=== PATIENT | female | born 2000 | race Two or more races ===

== ENCOUNTER 2025-01-03 00:44 | Emergency (ER) | payer SELFPAY ==
[~2025-01-03] VITALS: Ht 172.7 cm; Wt 61.4 kg
[2025-01-03 00:52] VITALS: TEMP 97.6
[2025-01-03] MEDS: ONDANSETRON HCL 4 MG/2 ML VIAL IVP ONE (01:39)
[2025-01-03 01:51] LABS: PLATELET COUNT (AUTO) 230 K/uL (150-450); RED BLOOD CELL COUNT(AUTO) 4.24 MIL/uL (4.00-5.20); RED CELL DISTRIBUTION WIDTH 13.1 % (11.5-14.5); WHITE BLOOD COUNT (AUTO) 6.3 K/uL (4.5-11.0)
[2025-01-03 01:57] LABS: CALCIUM, TOTAL 8.9 mg/dL (8.8-10.5); CREATININE 0.89 mg/dL (0.60-1.30); GLOMERULAR FILTR. RATE CALC > 60 mL/min (>60); GLUCOSE,RANDOM 120 mg/dL (70-110); SODIUM SERUM 140 mmol/L (136-145); UREA NITROGEN, BLOOD 11 mg/dL (7-18)
[2025-01-03 02:03] LABS: ALCOHOL, BLOOD (SERUM) 127.0 mg/dL (0-10)
[2025-01-03 02:08] LABS: ASPARTATE AMINOTRANSFERASE 42.0 U/L (15-37); TOTAL PROTEIN, SERUM 7.8 g/dL (6.4-8.2)
[2025-01-03] MEDS: PANTOPRAZOLE SODIUM 40 MG/VIAL IVP ONE (04:22)
[2025-01-03 04:31] VITALS: BP 103/76; PULSE 71; RESP 19; O2SAT 99
== END 2025-01-03 04:55 | disposition home or self-care (01) ==
LOC: EMS 00:50
DX: K29.70 Gastritis, unspecified, without bleeding (principal); R10.13 Epigastric pain; R11.10 Vomiting, unspecified; R10.11 Right upper quadrant pain; F10.129 Alcohol abuse with intoxication, unspecified; Y90.6 Blood alcohol level of 120-199 mg/100 ml
CPT/HCPCS: 99285; 74176; 96374; 76700; 96375; 80048; 80076; 83690; 84703; 85025; 36415; G0480; J1171; J2405; J2470

== ENCOUNTER 2025-01-06 06:48 | Emergency (ER) | payer MEDICAID ==
[~2025-01-06] VITALS: Ht 172.7 cm; Wt 65.9 kg
[2025-01-06 07:16] VITALS: TEMP 97.5
[2025-01-06 08:45] LABS: PLATELET COUNT (AUTO) 232 K/uL (150-450); RED BLOOD CELL COUNT(AUTO) 4.35 MIL/uL (4.00-5.20); RED CELL DISTRIBUTION WIDTH 13.2 % (11.5-14.5); WHITE BLOOD COUNT (AUTO) 6.9 K/uL (4.5-11.0)
[2025-01-06] MEDS: SODIUM CHLORIDE 0.9% 1,000 ML IV ONE (08:45)
[2025-01-06] MEDS: ONDANSETRON HCL 4 MG/2 ML VIAL IVP ONE (08:45)
[2025-01-06 08:47] LABS: CALCIUM, TOTAL 8.6 mg/dL (8.8-10.5); CREATININE 1.14 mg/dL (0.60-1.30); GLOMERULAR FILTR. RATE CALC 60.0 mL/min (>60); GLUCOSE,RANDOM 114.0 mg/dL (70-110); SODIUM SERUM 141.0 mmol/L (136-145); UREA NITROGEN, BLOOD 10.0 mg/dL (7-18)
[2025-01-06] MEDS: POTASSIUM CHLORIDE 20 MEQ ER TABLET PO ONE ×2 (09:17→10:44)
[2025-01-06 09:20] VITALS: BP 114/82; PULSE 56; RESP 16; O2SAT 100
[2025-01-06] MEDS ORDERED: ACETAMINOPHEN 500 MG TABLET PO ONE (10:15)
[2025-01-06] MEDS ORDERED: DIPH-1130 PO (10:39)
[2025-01-06] MEDS ORDERED: ONDA-104 PO (10:39)
[2025-01-06] MEDS ORDERED: ACET-66 PO (10:39)
== END 2025-01-06 10:57 | disposition home or self-care (01) ==
LOC: EMS 06:48
DX: K52.9 Noninfective gastroenteritis and colitis, unspecified (principal); E87.6 Hypokalemia; F12.90 Cannabis use, unspecified, uncomplicated; J45.909 Unspecified asthma, uncomplicated
CPT/HCPCS: 99283; 96374; 80048; 83690; 84703; 85025; 36415; J2405; J7030